=== PATIENT | female | born 2000 | race Caucasian/White ===

== ENCOUNTER 2019-09-28 00:01 | Inpatient (IN) | payer OTHER ==
[~2019-09-28] VITALS: Ht 160 cm; Wt 106.0 kg
[~2019-09-28 00:01] MED LIST: PRENATAL 19 TA1 EAC1 PO
--- NOTE | 2019-09-28 14:55 | PR ---
[facility] [address] [facility] [place], [place] [address] Signed Progress Notes IP Datetime Report Generated by LARRY: 09/28/2019 14:55 PROGRESS NOTES: [id number] Impression: Slow Progression of Labor Procedures: Intrauterine Pressure Catheter Plan: Augmentation Informed Consent Obtain: Vaginal Delivery; Induction of Labor; Risks, Benefits and Alternatives Discussed VITAL SIGNS: [id number] Vital Signs: Reviewed; Within Normal Limits EXAM: [id number] Dilatation: 5.0 Effacement: 80 Station: -2 Uterine Contractions: q 1 to 3 min MEMBRANES: [id number] Membrane Status: Intact Comments: Slow progress and suspect inadequate contractions. Comfortable after epidural. Will place IUPC and augment as needed. Fetus A: [id number] FHR Baseline: 130 Variability: Moderate 6-25bpm Accelerations: 15X15 Decelerations: None FHR Category: Category I Presentation: Vertex Comments on Fetus A: No evidence of metabolic acidosis Fetus B: [id number] Signing Physician: Carl Guajardo MD Copies: ~ *Electronically Signed* 09/28/19 1455 CARL GUAJARDO MD PATIENT NAME: BERKLEYANANDA GOMEZ ZACHARY PROGRESS NOTE DATE OF : 99 PHYSICIAN: CARL GUAJARDO MD RPT #: [id number] REPORT IS CONFIDENTIAL AND NOT TO BE RELEASED WITHOUT AUTHORIZATION
--- NOTE | 2019-09-30 09:37 | PR ---
[facility] [address] [facility] [place], [place] [address] Signed PP Progress Notes Datetime Report Generated by CPN: 09/30/2019 09:37 SUBJECTIVE: [id number] Pain: Within normal limits Nausea/Vomiting: Denies Vital Signs: [id number] Vital Signs: Reviewed; Within Normal Limits EXAM: [id number] Cardiovascular: Not Done Respiratory: Not Done Abdomen/Uterus: Abnormal Lochia: Normal Vulva/Perineum: Not Done Breasts: Not Done CVA Tenderness: Not Done Extremities: Normal Incision: Not Applicable Progress: Abnormal Exam Comments: Fundus firm, NT @ U-1. H/H 11.6/33.8, WBC 14.8, plat 208k IMPRESSION/PLAN/PROCEDURES: [id number] Impression: Normal progression; difficulties Plan: consult Procedures: Varicella Progress Notes: Doing well overall except breast feeding is not going well. She thinks she does wish to breast feed so it is reinforced that she must put the baby to breast and not use any formulas. 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 If her breast feeding is going well, D/C may be possible. Signing Physician: Matilde Guajardo MD Copies: ~ *Electronically Signed* 09/30/19 0937 MATILDE GUAJARDO MD PATIENT NAME: ANANDA TABARES PROGRESS NOTE DATE OF : 99 PHYSICIAN: MATILDE GUAJARDO MD RPT #: [id number] REPORT IS CONFIDENTIAL AND NOT TO BE RELEASED WITHOUT AUTHORIZATION
== END 2019-09-30 17:20 | disposition home or self-care (01) | DRG 807 ==
LOC: FBCO → FBC 00:01 → FBCO 09-30 06:21 → EDSTATUS 09-30 12:15 → FBC 09-30 17:20
PROVIDERS: ADMIT Obstetrics & Gynecology
PROC: 10H07YZ Insertion of Other Device into Products of Conception, Via Natural or Artificial Opening (ICD-10-PCS; 2019-09-28)
PROC: 3E0P7VZ Introduction of Hormone into Female Reproductive, Via Natural or Artificial Opening (ICD-10-PCS; 2019-09-28)
PROC: 10907ZC Drainage of Amniotic Fluid, Therapeutic from Products of Conception, Via Natural or Artificial Opening (ICD-10-PCS; 2019-09-28)
PROC: 00HU33Z Insertion of Infusion Device into Spinal Canal, Percutaneous Approach (ICD-10-PCS; 2019-09-28)
PROC: 3E0R3BZ Introduction of Anesthetic Agent into Spinal Canal, Percutaneous Approach (ICD-10-PCS; 2019-09-28)
PROC: 10E0XZZ Delivery of Products of Conception, External Approach (ICD-10-PCS; principal; 2019-09-29)
PROC: 0KQM0ZZ Repair Perineum Muscle, Open Approach (ICD-10-PCS; 2019-09-29)
PROC: 3E0234Z Introduction of Serum, Toxoid and Vaccine into Muscle, Percutaneous Approach (ICD-10-PCS; 2019-09-30)
DX: O24.420 Gestational diabetes mellitus in childbirth, diet controlled (principal); Z37.0 Single live birth; Z3A.39 39 weeks gestation of pregnancy; O70.1 Second degree perineal laceration during delivery; O99.214 Obesity complicating childbirth; E66.9 Obesity, unspecified; Z23 Encounter for immunization
CPT/HCPCS: 01960; 36415; 85027; 90716; J2590; J2795; J7121

== ENCOUNTER 2020-12-22 07:10 | Inpatient (IN) | payer OTHER ==
[~2020-12-22] VITALS: Ht 157.5 cm; Wt 113.9 kg
--- NOTE | 2020-12-22 08:21 | PR ---
[facility] [address] [facility] [place], [place] [address] Signed Progress Notes IP Datetime Report Generated by CPMike: 12/22/2020 08:20 PROGRESS NOTES: [id number] Impression: Normal Progression of Labor; Reassuring Heart Rate Procedures: Artificial ROM; Sterile Vag Exam Plan: Continue Present Management VITAL SIGNS: [id number] Vital Signs: Reviewed; Within Normal Limits EXAM: [id number] Dilatation: 8.0 Effacement: 90 Station: -2 Contractions: q 2 to 3 min MEMBRANES: [id number] Comments: Comfortable after epidural. Will continue. FETUS A: [id number] FHR Baseline: 140 Variability: Moderate 6-25bpm Accelerations: 15X15 Decelerations: None FHR Category: Category I Presentation: Vertex Comments on Fetus A: No evidence of metabolic acidosis FETUS B: [id number] Signing Physician: Matilde Guajardo MD Copies: ~ *Electronically Signed* 12/22/20819 MATILDE GUAJARDO MD PATIENT NAME: ANANDA TABARES PROGRESS NOTE DATE OF : 99 PHYSICIAN: MATILDE GUAJARDO MD RPT #: [id number] REPORT IS CONFIDENTIAL AND NOT TO BE RELEASED WITHOUT AUTHORIZATION
--- NOTE | 2020-12-22 11:05 | PR ---
[facility] [address] [facility] [place], [place] [address] Signed Progress Notes IP Datetime Report Generated by LARRY: 12/22/2020 11:05 PROGRESS NOTES: [id number] Impression: Normal Progression of Labor; Reassuring Heart Rate Other Impressions: slow progress Procedures: Intrauterine Pressure Catheter; Sterile Vag Exam Plan: Augmentation VITAL SIGNS: [id number] Vital Signs: Reviewed; Within Normal Limits EXAM: [id number] Dilatation: 7.5 Effacement: 90 Station: -2 Contractions: q 2 to 3 min MEMBRANES: [id number] Comments: Very slow progress and suspect poor contractions. Will place IUPC and augment as needed. Will watch FHTs as well. FETUS A: [id number] FHR Baseline: 140 Variability: Moderate 6-25bpm Accelerations: 15X15 Decelerations: None FHR Category: Category I Presentation: Vertex Comments on Fetus A: No evidence of metabolic acidosis FETUS B: [id number] Signing Physician: Carl Guajardo MD Copies: ~ *Electronically Signed* 12/22/20 1105 CARL GUAJARDO MD PATIENT NAME: MARKANANDA MARIAETH PROGRESS NOTE DATE OF : 99 PHYSICIAN: CARL GUAJARDO MD RPT #: [id number] REPORT IS CONFIDENTIAL AND NOT TO BE RELEASED WITHOUT AUTHORIZATION
--- NOTE | 2020-12-23 09:31 | PR ---
[facility] [address] [facility] [place] [address] Signed PP Progress Notes Datetime Report Generated by CPMike: 12/23/2020 09:31 SUBJECTIVE: [id number] Pain: Within Normal Limits Vital Signs: [id number] Vital Signs: Reviewed; Within Normal Limits Cardiovascular: Not Done Respiratory: Not Done Abdomen/Uterus: Abnormal Lochia: Normal Vulva/Perineum: Not Done Breasts: Not Done CVA Tenderness: Not Done Extremities: Normal Incision: Not Applicable Progress: Normal Exam Comments: Fundus firm, NT @ U-2. H/H 12.9/36.9, WBC 12.3, plat 184k IMPRESSION/PLAN/PROCEDURES: [id number] Impression: Normal Progression Plan: Discharge Procedures: None Progress Notes: Doing well. She is ready for discharge. Signing Physician: Carl Guajardo MD Copies: ~ *Electronically Signed* 12/23/20930 CARL GUAJARDO MD PATIENT NAME: ANANDA TABARES PROGRESS NOTE DATE OF : 99 PHYSICIAN: CARL GUAJARDO MD RPT #: [id number] REPORT IS CONFIDENTIAL AND NOT TO BE RELEASED WITHOUT AUTHORIZATION
== END 2020-12-23 14:27 | disposition home or self-care (01) | DRG 807 ==
LOC: FBCO 07:10 → FBC 07:31
PROVIDERS: ADMIT Obstetrics & Gynecology; ATTEND Obstetrics & Gynecology
PROC: 10E0XZZ Delivery of Products of Conception, External Approach (ICD-10-PCS; principal; 2020-12-22)
PROC: 0HQ9XZZ Repair Perineum Skin, External Approach (ICD-10-PCS; 2020-12-22)
PROC: 10907ZC Drainage of Amniotic Fluid, Therapeutic from Products of Conception, Via Natural or Artificial Opening (ICD-10-PCS; 2020-12-22)
PROC: 10H07YZ Insertion of Other Device into Products of Conception, Via Natural or Artificial Opening (ICD-10-PCS; 2020-12-22)
PROC: 00HU33Z Insertion of Infusion Device into Spinal Canal, Percutaneous Approach (ICD-10-PCS; 2020-12-22)
PROC: 3E0R3BZ Introduction of Anesthetic Agent into Spinal Canal, Percutaneous Approach (ICD-10-PCS; 2020-12-22)
DX: O99.214 Obesity complicating childbirth (principal); Z37.0 Single live birth; E66.9 Obesity, unspecified; Z3A.40 40 weeks gestation of pregnancy; Z20.822 Contact with and (suspected) exposure to COVID-19; O70.0 First degree perineal laceration during delivery; O69.1XX0 Labor and delivery complicated by cord around neck, with compression, not applicable or unspecified; O69.82X0 Labor and delivery complicated by other cord entanglement, without compression, not applicable or unspecified; Z86.32 Personal history of gestational diabetes
CPT/HCPCS: 01960; 36415; 85027; A9270; J2590; J3010; J7121; U0003

== ENCOUNTER 2023-05-05 00:01 | Inpatient (IN) | payer OTHER ==
[~2023-05-05] VITALS: Ht 160 cm; Wt 125.2 kg
[2023-05-05 00:56] VITALS: BP 132/67
--- NOTE | 2023-05-05 05:55 | PR ---
[facility] [address] [facility] [place], [place] [address] Signed Progress Notes IP Datetime Report Generated by CPN: 05/05/2023 05:55 PROGRESS NOTES: [id number] Impression: Normal Progression of Labor Procedures: Sterile Vag Exam Plan: Continue Present Management VITAL SIGNS: [id number] Vital Signs: Reviewed; Within Normal Limits EXAM: [id number] Dilatation: 1.5 Effacement: 75 Station: -3 Contractions: q 1 to 3 min MEMBRANES: [id number] Comments: Pt becoming more uncomfortable and has had cervical change. Will put back on monitor. FETUS A: [id number] FHR Baseline: 120 Variability: Moderate 6-25bpm Accelerations: 15X15 Decelerations: None FHR Category: Category I Presentation: Vertex Comments on Fetus A: no evidence of metabolic acidosis FETUS B: [id number] Signing Physician: Matilde Guajardo MD Copies: ~ *Electronically Signed* 05/05/23 0555 MATILDE GUAJARDO MD PATIENT NAME: ANANDA TABARES PROGRESS NOTE DATE OF : 99 PHYSICIAN: MATILDE GUAJARDO MD RPT #: [id number] REPORT IS CONFIDENTIAL AND NOT TO BE RELEASED WITHOUT AUTHORIZATION
--- NOTE | 2023-05-05 10:13 | PR ---
[facility] [address] [facility] [place], [place] [address] Signed Progress Notes IP Datetime Report Generated by CPN: 05/05/2023 10:13 PROGRESS NOTES: [id number] Impression: Reassuring Heart Rate Procedures: Artificial ROM; Sterile Vag Exam Plan: Continue Present Management VITAL SIGNS: [id number] Vital Signs: Reviewed; Within Normal Limits EXAM: [id number] Dilatation: 4.0 Effacement: 70 Station: -2 Contractions: q 1 to 3 min MEMBRANES: [id number] Comments: Comfortable after epidural. Will continue. FETUS A: [id number] FHR Baseline: 120 Variability: Moderate 6-25bpm Accelerations: 15X15 Decelerations: None FHR Category: Category I Presentation: Vertex Comments on Fetus A: no evidence of metabolic acidosis FETUS B: [id number] Signing Physician: Matilde Guajardo MD Copies: ~ *Electronically Signed* 05/05/23 1013 MATILDE GUAJARDO MD PATIENT NAME: ANANDA TABARES PROGRESS NOTE DATE OF : 99 PHYSICIAN: MATILDE GUAJARDO MD RPT #: [id number] REPORT IS CONFIDENTIAL AND NOT TO BE RELEASED WITHOUT AUTHORIZATION
--- NOTE | 2023-05-05 13:10 | PR ---
[facility] [address] [facility] [place] [place] [address] Signed Progress Notes IP Datetime Report Generated by LARRY: 05/05/2023 13:10 PROGRESS NOTES: [id number] Impression: Reassuring Heart Rate Procedures: Intrauterine Pressure Catheter; Scalp Electrode; Sterile Vag Exam Plan: Augmentation VITAL SIGNS: [id number] Vital Signs: Reviewed; Within Normal Limits EXAM: [id number] Dilatation: 4.0 Effacement: 80 Station: -3 Contractions: q 1 to 3 min MEMBRANES: [id number] Comments: Comfortable. Minimal progress. Will place IUPC and FSE and will begin pit augment. FETUS A: [id number] FHR Baseline: 120 Variability: Moderate 6-25bpm Accelerations: 15X15 Decelerations: None FHR Category: Category I Presentation: Vertex Comments on Fetus A: no evidence of metabolic acidosis FETUS B: [id number] Signing Physician: Carl Guajardo MD Copies: ~ *Electronically Signed* 05/05/23 1310 CARL GUAJARDO MD PATIENT NAME: ANANDA TABARES ZACHARY PROGRESS NOTE DATE OF : 99 PHYSICIAN: CARL GUAJARDO MD RPT #: [id number] REPORT IS CONFIDENTIAL AND NOT TO BE RELEASED WITHOUT AUTHORIZATION
--- NOTE | 2023-05-06 13:54 | PR ---
[facility] [address] [place], [place] [address] Signed PP Progress Notes Datetime Report Generated by LARRY: 05/06/2023 13:54 SUBJECTIVE: [id number] Pain: Within Normal Limits Pain Comments: called to bedside for increased passage of clots Vital Signs: I3045647 Vital Signs: Reviewed; Within Normal Limits Cardiovascular: Not Done Respiratory: Not Done Abdomen/Uterus: Abnormal Lochia: Abnormal Vulva/Perineum: Not Done Breasts: Not Done CVA Tenderness: Not Done Extremities: Normal Incision: Not Applicable Progress: Normal Exam Comments: Uterus at U+4 Multiple clots removed from the uterus but could not evacuate all the clots from the fundus manually IMPRESSION/PLAN/PROCEDURES: [id number] Impression: Normal Progression Other Impression: pp hemorrhage Plan: Discharge Other Plans: to OR for emergent D_C Procedures: None Progress Notes: Bleeding has increased and uterus much enlarged with clots. I cannot evacuate all of the clots manually and I feel a D_C is needed. This in combination with medication may be sufficient to manage her bleeding. If this is not, she may require a Bakri but worst case would be possible hyst if bleeding cannot be managed. Will proceed with surgery YINKA. Signing Physician: Carl Guajardo MD Copies: ~ *Electronically Signed* 05/06/23 4719 CARL GUAJARDO MD PATIENT NAME: ANANDA TABARES PROGRESS NOTE DATE OF : 99 PHYSICIAN: CARL GUAJARDO MD RPT #: [id number] REPORT IS CONFIDENTIAL AND NOT TO BE RELEASED WITHOUT AUTHORIZATION
--- NOTE | 2023-05-06 14:51 | NUR ---
05/06/23 1457 Bella Jamison 4276-PATIENT ARRIVED TO PACU ON 6L MASK RR EVEN. PATIENT REACTIVE TO VERBAL STIMULI EYES CLOSED MOVING HEAD TO SIDE. SR. IVF INFUSING 2L PITOCIN LR TO LEFT ARM CDI. WILLIAM PAD NO DRAINAGE. KRAUSE CATHETER DRAINING
[2023-05-06 15:10] VITALS: BP 124/66
--- NOTE | 2023-05-07 08:08 | PR ---
[facility] [address] [facility] [place], [place] [address] Signed PP Progress Notes Datetime Report Generated by CPN: 05/07/2023 08:08 SUBJECTIVE: [id number] Pain: Within Normal Limits Pain Comments: bleeding much improved from yesterday Nausea/Vomiting: Denies Vital Signs: [id number] Vital Signs: Reviewed; Within Normal Limits Cardiovascular: Not Done Respiratory: Not Done Abdomen/Uterus: Abnormal Lochia: Normal Vulva/Perineum: Not Done Breasts: Not Done CVA Tenderness: Not Done Extremities: Normal Incision: Not Applicable Progress: Normal Exam Comments: Fundus firm, NT @ U+1 sl deviated to her left which is unchanged from yesterday postop. H/H 9.1/26.7, WBC 12.7, plat 179k IMPRESSION/PLAN/PROCEDURES: [id number] Impression: Normal Progression Other Impression: pp hemorrhage resolved Plan: Discharge Other Plans: to OR for emergent D_C Procedures: None Progress Notes: Doing well at this time. Bleeding much improved. H/H with significant decrease but tolerating this well. I think she is stable for D/C. Signing Physician: Matilde Guajardo MD Copies: ~ *Electronically Signed* 05/07/23807 MATILDE GUAJARDO MD PATIENT NAME: ANANDA TABARES PROGRESS NOTE DATE OF : 99 PHYSICIAN: MATILDE GUAJARDO MD RPT #: [id number] REPORT IS CONFIDENTIAL AND NOT TO BE RELEASED WITHOUT AUTHORIZATION
== END 2023-05-07 10:03 | disposition home or self-care (01) | DRG 798 ==
LOC: FBC 00:01
PROVIDERS: ADMIT Obstetrics & Gynecology; ATTEND Obstetrics & Gynecology
PROC: 10907ZC Drainage of Amniotic Fluid, Therapeutic from Products of Conception, Via Natural or Artificial Opening (ICD-10-PCS; principal; 2023-05-05)
PROC: 00HU33Z Insertion of Infusion Device into Spinal Canal, Percutaneous Approach (ICD-10-PCS; 2023-05-05)
PROC: 3E0R3BZ Introduction of Anesthetic Agent into Spinal Canal, Percutaneous Approach (ICD-10-PCS; 2023-05-05)
PROC: 10H07YZ Insertion of Other Device into Products of Conception, Via Natural or Artificial Opening (ICD-10-PCS; 2023-05-05)
PROC: 4A1HXCZ Monitoring of Products of Conception, Cardiac Rate, External Approach (ICD-10-PCS; 2023-05-05)
PROC: 10D17ZZ Extraction of Products of Conception, Retained, Via Natural or Artificial Opening (ICD-10-PCS; 2023-05-05)
PROC: 3E0P7VZ Introduction of Hormone into Female Reproductive, Via Natural or Artificial Opening (ICD-10-PCS; 2023-05-05)
PROC: 0HQ9XZZ Repair Perineum Skin, External Approach (ICD-10-PCS; 2023-05-05)
PROC: 0UQMXZZ Repair Vulva, External Approach (ICD-10-PCS; 2023-05-05)
PROC: 10E0XZZ Delivery of Products of Conception, External Approach (ICD-10-PCS; 2023-05-05)
DX: O99.214 Obesity complicating childbirth (principal); Z37.0 Single live birth; Z67.10 Type A blood, Rh positive; O70.0 First degree perineal laceration during delivery; Z3A.39 39 weeks gestation of pregnancy; O72.1 Other immediate postpartum hemorrhage
CPT/HCPCS: 00940; 36415; 85027; 86850; 86900; 86901; A9270; J0131; J0330; J0690; J1100; J1644; J2405; J2590; J2704; J2795; J3010; J7121

== ENCOUNTER 2024-08-24 05:45 | Inpatient (IN) | payer OTHER ==
[~2024-08-24] VITALS: Ht 157.5 cm; Wt 122.0 kg
[2024-08-24] MEDS ORDERED: MAGNESIUM HYDROXIDE/AL HYDROX 30 ML CUP PO PRN ×2 (06:00→21:30)
[2024-08-24] MEDS ORDERED: miSOPROStoL 25 MCG TAB PV SCH (06:00)
[2024-08-24] MEDS ORDERED: CALCIUM CARBONATE 500 MG CHEW PO PRN ×2 (06:00→21:30)
[2024-08-24] MEDS ORDERED: LACTATED RINGER'S 1,000 ML IV SCH (06:00)
[2024-08-24 06:34] VITALS: BP 126/58
[2024-08-24] MEDS ORDERED: OXYTOCIN/DEXTROSE 5% 20 UNITS/100 ML BAG IV SCH (06:45)
[2024-08-24 06:53] LABS: HEMATOCRIT 36.9 % (35.0-50.0); HEMOGLOBIN 12.8 g/dL (12.0-18.0); MCH 29.4 (27-36); MCHC 34.8 g/dl (30-36); MCV 84.7 fl (81-99); RBC 4.36 M/ul (4.3-5.7); RDW 14.9 (10.5-15.0)
[2024-08-24 07:20] LABS: AMPHETAMINES, URINE NEGATIVE (NEGATIVE); BARBITURATES, URINE NEGATIVE (NEGATIVE); BENZODIAZEPINE, URINE NEGATIVE (NEGATIVE); BUPRENORPHINE, URINE NEGATIVE (NEGATIVE); CANNABINOID, URINE NEGATIVE (NEGATIVE); COCAINE, URINE NEGATIVE (NEGATIVE); ECSTASY, URINE NEGATIVE (NEGATIVE); FENTANYL, URINE NEGATIVE (NEGATIVE); METHADONE, URINE NEGATIVE (NEGATIVE); OPIATES, URINE NEGATIVE (NEGATIVE); OXYCODONE, URINE NEGATIVE (NEGATIVE); PHENCYCLIDINE, URINE NEGATIVE (NEGATIVE)
[2024-08-24 07:25] LABS: ABO A; RH POSITIVE
[2024-08-24 07:26] LABS: ANTIBODY SCREEN NEGATIVE
[2024-08-24] MEDS ORDERED: ePHEDrine sulfate 5 MG/ML SYRINGE IV PRN (15:00)
[2024-08-24] MEDS ORDERED: ROPIVACAINE 0.2% 200 ML BAG EPIDURAL SCH (15:00)
[2024-08-24] MEDS ORDERED: LACTATED RINGER'S 2,000 ML IV ONE (15:00)
[2024-08-24] MEDS ORDERED: LACTATED RINGER'S 500 ML IV PRN (15:00)
[2024-08-24] MEDS ORDERED: fentaNYL citrate 100 MCG/2 ML VIAL ONE (15:39)
[2024-08-24] MEDS ORDERED: WITCH HAZEL/GLYCERIN 1 EA PAD TOP PRN (21:30)
[2024-08-24] MEDS ORDERED: ACETAMINOPHEN 325 MG TAB PO PRN (21:30)
[2024-08-24] MEDS ORDERED: OXYCODONE HCL 5 MG TAB PO PRN (21:30)
[2024-08-24] MEDS ORDERED: LIDOCAINE 2% VISCOUS 6 ML SYR TOP ONE ×2 (21:30)
[2024-08-24] MEDS ORDERED: HYDROCORTISONE ACETATE 25 MG SUPP PR PRN (21:30)
[2024-08-24] MEDS ORDERED: OXYCODONE/APAP 5/325 TAB PO PRN (21:30)
[2024-08-24] MEDS ORDERED: HYDROCODONE/ACETA 5/325 TAB PO PRN (21:30)
[2024-08-24] MEDS ORDERED: MAGNESIUM HYDROXIDE 30 ML UDC PO PRN (21:30)
[2024-08-24] MEDS ORDERED: OXYTOCIN/0.9 % SODIUM CHLORIDE 500 ML IV SCH (21:30)
[2024-08-24] MEDS ORDERED: IBUPROFEN 600 MG TAB PO PRN (21:30)
[2024-08-24] MEDS ORDERED: BENZOCAINE 60 ML AEROSOL TOP PRN (21:30)
[2024-08-25 06:25] LABS: HEMATOCRIT 33.5 % (35.0-50.0); HEMOGLOBIN 11.4 g/dL (12.0-18.0); MCV 85.3 fl (81-99); RBC 3.93 M/ul (4.3-5.7); RDW 14.7 (10.5-15.0)
--- NOTE | 2024-08-25 07:30 | PR ---
[facility] [address] [place] [address] Signed PP Progress Notes Datetime Report Generated by CPMike: 08/25/2024 07:30 SUBJECTIVE: [id number] Pain: Within Normal Limits Vital Signs: [id number] Vital Signs: Reviewed; Within Normal Limits Cardiovascular: Not Done Respiratory: Not Done Abdomen/Uterus: Abnormal Lochia: Normal Vulva/Perineum: Not Done Breasts: Not Done CVA Tenderness: Not Done Extremities: Normal Incision: Not Applicable Progress: Normal Exam Comments: Fundus firm, NT @ U-1. H/H 11.4/33.5, WBC 11.4, plat 213k1 IMPRESSION/PLAN/PROCEDURES: [id number] Impression: Normal Progression Procedures: None Progress Notes: Doing well. She is considering discharge later today but may desire discharge in the am. Signing Physician: Matilde Guajardo MD Copies: ~ *Electronically Signed* 08/25/24729 MATILDE GUAJARDO MD PATIENT NAME: ANANDA TABARES PROGRESS NOTE DATE OF : 99 PHYSICIAN: MATILDE GUAJARDO MD RPT #: [id number] REPORT IS CONFIDENTIAL AND NOT TO BE RELEASED WITHOUT AUTHORIZATION
[2024-08-25] MEDS ORDERED: SENNOSIDES/DOCUSATE 1 EA TAB PO SCH (09:00)
== END 2024-08-25 21:50 | disposition home or self-care (01) | DRG 807 ==
LOC: FBC 05:45
PROVIDERS: ADMIT Obstetrics & Gynecology; ATTEND Obstetrics & Gynecology
PROC: 10E0XZZ Delivery of Products of Conception, External Approach (ICD-10-PCS; principal; 2024-08-24)
PROC: 10907ZC Drainage of Amniotic Fluid, Therapeutic from Products of Conception, Via Natural or Artificial Opening (ICD-10-PCS; 2024-08-24)
PROC: 3E0P7VZ Introduction of Hormone into Female Reproductive, Via Natural or Artificial Opening (ICD-10-PCS; 2024-08-24)
PROC: 3E033VJ Introduction of Other Hormone into Peripheral Vein, Percutaneous Approach (ICD-10-PCS; 2024-08-24)
DX: O24.425 Gestational diabetes mellitus in childbirth, controlled by oral hypoglycemic drugs (principal); Z37.0 Single live birth; O76 Abnormality in fetal heart rate and rhythm complicating labor and delivery; Z3A.39 39 weeks gestation of pregnancy; O99.214 Obesity complicating childbirth; E66.01 Morbid (severe) obesity due to excess calories; O99.284 Endocrine, nutritional and metabolic diseases complicating childbirth; E28.2 Polycystic ovarian syndrome; K42.9 Umbilical hernia without obstruction or gangrene; O99.62 Diseases of the digestive system complicating childbirth; O99.02 Anemia complicating childbirth
CPT/HCPCS: 01960; 36415; 80307; 85027; 86850; 86900; 86901; A9270; J3010